=== PATIENT | female | born 1965 | race Caucasian/White ===

== ENCOUNTER → 2019-11-05 | Outpatient (CLI) | payer OTHER ==
[~2019-11-05] MED LIST: ASCO100018 PO; EVEP1CAP PO; [UNRECOGNIZED DRUG - OTHER] PO; [UNRECOGNIZED DRUG - OTHER] PO
[2019-11-05 15:14] LABS: BASOPHILS # (AUTO) 0.03 x10^3/uL (0-0.1); BASOPHILS % (AUTO) 1 % (0-1); EOSINOPHILS % (AUTO) 3 % (1-7); LYMPHOCYTES # (AUTO) 2.09 x10^3/uL (1-3.4); LYMPHOCYTES % (AUTO) 33 % (22-44); MD NO; MEAN CORPUSCULAR HEMOGLOBIN 29.3 pg (27.0-34.8); MEAN CORPUSCULAR HGB CONC 33.7 g/dL (32.4-35.8); MEAN CORPUSCULAR VOLUME 86.9 fL (80-100); MEAN PLATELET VOLUME 9.4 fL (7.4-10.4); MONOCYTES # (AUTO) 0.54 x10^3/uL (0.2-0.8); MONOCYTES % (AUTO) 9 % (2-9); NEUTROPHILS # (AUTO) 3.47 x10^3/uL (1.8-6.8); NEUTROPHILS % (AUTO) 55 % (42-75); PLATELET COUNT 202 x10^3/uL (130-400); RED BLOOD COUNT 4.69 x10^6/uL (3.82-5.3); RED CELL DISTRIBUTION WIDTH 13.5 % (9.6-15.2)
[2019-11-05 15:24] LABS: MICROSCOPIC NOT IND
[2019-11-05 15:26] LABS: ALANINE AMINOTRANSFERASE 24 U/L (12-78); ALBUMIN 3.3 g/dL (3.4-5.0); ANION GAP 5 mmol/L (5-15); CALCIUM 8.6 mg/dL (8.5-10.1); CHLORIDE 109 mmol/L (98-107); CREATININE 0.77 mg/dL (0.55-1.02)
[2019-11-05 15:28] LABS: ALKALINE PHOSPHATASE 95 U/L (45-117); BILIRUBIN,TOTAL 0.6 mg/dL (0.2-1.0); TOTAL PROTEIN 6.9 g/dL (6.4-8.2)
== END | disposition home or self-care (01) ==
LOC: STAR 13:39
PROVIDERS: ATTEND Obstetrics & Gynecology Gynecology
DX: Z01.818 Encounter for other preprocedural examination (principal); N84.0 Polyp of corpus uteri; N95.0 Postmenopausal bleeding
CPT/HCPCS: 36415; 71046; 80053; 81003; 85025; 93005

== ENCOUNTER 2019-11-12 05:37 | Day surgery (SDC) | payer OTHER ==
[~2019-11-12] VITALS: Ht 174 cm; Wt 108.9 kg
[2019-11-12] MEDS ORDERED: CHLORHEXIDINE 15 ML UDC MM STA (06:11)
[2019-11-12] MEDS ORDERED: LACTATED RINGERS 1,000 ML IV ONE (06:11)
[2019-11-12 06:24] VITALS: BP 155/96
[2019-11-12] MEDS ORDERED: FENTANYL PF 100 MCG/2ML ONE (06:31)
[2019-11-12] MEDS ORDERED: MIDAZOLAM 1 MG/ML, 2ML ONE (06:31)
[2019-11-12] MEDS ORDERED: LIDOCAINE 1%-EPI 1:100K, 20ML ONE (06:56)
[2019-11-12] MEDS ORDERED: EPHEDRINE 50 MG/ML, 1ML IVPush PRN (07:00)
[2019-11-12] MEDS ORDERED: MEPERIDINE/PF 25MG/0.5ML IVPush PRN (07:00)
[2019-11-12] MEDS ORDERED: OXYcodone 5 MG/5 ML ORAL.SOL UDC PO PRN (07:00)
[2019-11-12] MEDS ORDERED: DIPHENHYDRAMINE 50 MG/ML, 1ML IVPush PRN (07:00)
[2019-11-12] MEDS ORDERED: ALBUTEROL SULFATE 2.5 MG/3 ML NPPB PRN (07:00)
[2019-11-12] MEDS ORDERED: hydrALAzine 20 MG/ML, 1ML IV PRN (07:00)
[2019-11-12] MEDS ORDERED: HYDROmorphone 1 MG/ML, 1ML INJ IVPush PRN (07:00)
[2019-11-12] MEDS ORDERED: ACETAMINOPHEN 325 MG TABLET PO PRN (07:00)
[2019-11-12] MEDS ORDERED: FENTANYL PF 100 MCG/2ML IV PRN (07:00)
[2019-11-12] MEDS ORDERED: LABETALOL 5MG/ML, 20ML IV PRN (07:00)
[2019-11-12] MEDS ORDERED: DIAZEPAM 5 MG/ML, 2ML IVPush PRN (07:00)
[2019-11-12] MEDS ORDERED: PROMETHAZINE 25 MG/ML, 1ML IVPush PRN (07:00)
[2019-11-12] MEDS ORDERED: KETOROLAC 30 MG/1 ML ONE (07:29)
[2019-11-12] MEDS ORDERED: METOCLOPRAMIDE 5 MG/ML, 2ML ONE (07:29)
[2019-11-12] MEDS ORDERED: LIDOCAINE 4%, 4 ML SYR/CANN TP ONE (07:29)
[2019-11-12] MEDS ORDERED: SUCCINYLCHOLINE 20 MG/ML, 10ML ONE (07:33)
[2019-11-12] MEDS ORDERED: CEFAZOLIN 1,000 MG ONE (07:33)
[2019-11-12] MEDS ORDERED: ROCURONIUM 10MG/ML,5ML ONE (07:33)
[2019-11-12] MEDS ORDERED: GLYCOPYRROLATE 0.2MG/1ML, 5ML ONE (07:33)
[2019-11-12] MEDS ORDERED: DEXAMETHASONE 4 MG/ML, 1ML ONE (07:33)
[2019-11-12] MEDS ORDERED: ONDANSETRON 2MG/ML, 2ML ONE (07:33)
[2019-11-12] MEDS ORDERED: PROPOFOL 10 MG/ML, 20ML ONE (07:33)
[2019-11-12] MEDS ORDERED: NEOSTIGMINE 1 MG/ML, 10ML ONE (07:33)
[2019-11-12] MEDS ORDERED: PROPOFOL 50 ML ONE ×2 (07:33→07:58)
[2019-11-12] MEDS ORDERED: SILVER NITRATE STICK TP ONE (07:52)
[2019-11-12] MEDS ORDERED: CHLORHEXIDINE 15 ML UDC MM ONE (14:30)
== END 2019-11-12 09:55 | disposition home or self-care (01) ==
LOC: OUT 05:37
PROVIDERS: ATTEND Obstetrics & Gynecology Gynecology
DX: N95.8 Other specified menopausal and perimenopausal disorders (principal); N84.0 Polyp of corpus uteri; E66.9 Obesity, unspecified; Z91.048 Other nonmedicinal substance allergy status; Z68.36 Body mass index [BMI] 36.0-36.9, adult; Z79.899 Other long term (current) drug therapy; Z72.89 Other problems related to lifestyle; Z20.828 Contact with and (suspected) exposure to other viral communicable diseases; Z82.49 Family history of ischemic heart disease and other diseases of the circulatory system
CPT/HCPCS: 36415; 58558; 87635; 88305; J0330; J0690; J1100; J1885; J2250; J2405; J2704; J2710; J2765; J3010; J3490; J7120